=== PATIENT | male | born 1960 | race Caucasian/White ===

== ENCOUNTER → 2019-08-01 | Outpatient (CLI) | payer BC ==
[~2019-08-01] VITALS: Ht 182.9 cm; Wt 78.9 kg
[2019-08-01 13:37] VITALS: BP 144/101; PULSE 80
[2019-08-01 15:12] VITALS: BP 130/70; PULSE 58
[2019-08-01 15:15] VITALS: BP 130/70; PULSE 58
--- NOTE | 2019-08-01 15:41 | NUR ---
WENT OVER DC INSTRUCTIONS WITH PT AND . BOTH VERBALZIED UNDERSTANDING OF SAME. PT IS TAKEN DOWN IN WHEELCHAIR TO POV WHERE HIS MEETS HIM AT THE DOOR.
== END ==
LOC: COL.RAD 13:14
DX: M54.17 Radiculopathy, lumbosacral region (principal)
CPT/HCPCS: J3301